=== PATIENT | female | born 2000 | race Caucasian/White ===

== ENCOUNTER → 2023-09-19 | Outpatient (CLI) | payer BC, OTHER ==
--- NOTE | 2023-09-20 09:20 | US ---
EXAMINATION TYPE: US thyroid st tissue head/neck DATE OF EXAM: 09/19/2023 COMPARISON: NONE CLINICAL INDICATION: Female, 23 years old with history of R221 SWELLING MASS AND LUMP NECK; Pt states palpable lump left side base of skull x 1 1/2 months. Pt states it is tender at times and has cheney es in size. Technique: soft tissue base of skull In area of pt's palpable there is a complex area that appears to have hilum vascularity= 1.7 x 0.8 x 1.5 cm ?lymph node vs. other etiology IMPRESSION: Well-circumscribed mass with blood flow within it. Most likely represents a lymph node. The short axi s of the lymph node is less than 1 cm and is therefore not enlarged. Short-term follow-up is recommen ded.
== END | disposition home or self-care (01) ==
LOC: RADUSWWP 15:49
PROVIDERS: ATTEND Family Medicine
DX: R22.1 Localized swelling, mass and lump, neck (principal)
CPT/HCPCS: 76536